=== PATIENT | female | born 1970 | race Caucasian/White ===

== ENCOUNTER 2021-05-01 13:17 | Outpatient (CLI) | payer OTHER, SELFPAY ==
--- NOTE | 2021-05-01 13:46 | XR_ITS ---
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 Joint spaces of the left hand are relatively well-preserved. No erosions or periosteal reaction. No soft tissue abnormality. XR/XR hand LT min 3V* [id number] IMPRESSION: No significant abnormality.
--- NOTE | 2021-05-01 13:46 | XR_ITS ---
WS: [email or web address] RIGHT FOOT: 3 VIEW(S) TECHNIQUE: AP, oblique and lateral. 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 No acute fracture or dislocation. Normal tarsal/metatarsal alignment. Moderate size calcaneal spur measures 6 mm. Mild enthesopathy at the distal Achilles tendon. XR/XR foot RT min 3V* [id number] IMPRESSION: Mild enthesopathy distal Achilles tendon and calcaneal spur.
--- NOTE | 2021-05-01 13:46 | XR_ITS ---
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 Moderate narrowing of the C2-C3 interspace which may be congenital. Moderate narrowing of the C5-C6 a nd C6-C7 interspaces. Mild degenerative changes in the facet joints C5-C7. Normal facet joint alignment. No significant listhesis. XR/XR cervical spine 3V* [id number] IMPRESSION: Mild changes of degenerative spondylosis C5-C7
--- NOTE | 2021-05-01 13:46 | XR_ITS ---
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 Joint spaces of the right hand are relatively well-preserved. No erosions or periosteal reaction. No soft tissue abnormality. XR/XR hand RT min 3V* [id number] IMPRESSION: No significant abnormality.
--- NOTE | 2021-05-01 13:46 | XR_ITS ---
WS: [email or web address] LEFT FOOT: 3 VIEW(S) TECHNIQUE: AP, oblique and lateral. 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 No acute fracture or dislocation. Normal tarsal/metatarsal alignment. Calcaneal spur measures 6 mm. Very slight calcification in the distal Achilles tendon. XR/XR foot LT min 3V* [id number] IMPRESSION: Minimal calcification the distal Achilles tendon and a small calcaneal spur.
--- NOTE | 2021-05-01 13:46 | XR_ITS ---
WS: [email or web address] PELVIS: AP VIEW SUBMITTED HISTORY: Z79.899 - Other detention (current) drug therapy, chronic pain for 3 years. COMPARISON: None available. Bones and soft tissues of the pelvis are intact. No fracture or dislocation. No sclerosis or fusion of the SI joints. Mild enthesopathy at the iliac crest. Well-corticated calcif ication adjacent to the RIGHT greater trochanter may be from prior trauma or calcific deposition. XR/XR pelvis 1-2V* [id number] IMPRESSION: 1. Mild enthesopathy of the iliac crest and calcification in the soft tissue a djacent to the RIGHT greater trochanter. Consider CPPD. 2. No fracture or fusion across the SI joints.
[2021-05-01 15:19] LABS: Basophils # 0.1 10^3/uL (0.0-0.1); Basophils % 0.7 %; Eosinophils # 0.2 10^3/uL (0.0-0.8); Eosinophils % 2.7 %; Hematocrit 42.2 % (37.0-47.0); Hemoglobin 13.5 g/dL (11.5-15.3); Lymphocytes # 2.4 10^3/uL (0.8-4.8); Lymphocytes % 28.8 %; Mean Corpuscular Hemoglobin 28.4 pg (28.0-34.0); Mean Corpuscular Volume 88.7 fl (81-99); Mean Platelet Volume 10.3 fL (7.4-10.4); Monocytes # 0.5 10^3/uL (0.2-0.9); Monocytes % 5.7 %; Neutrophils % 61.9 %; Nucleated Red Blood Cells % 0 %; Platelet Count 359 10^3/cmm (130-400); Red Blood Count 4.76 10^6/uL (4.1-5.3); Red Cell Distribution Width 13.9 % (12.1-15.1); White Blood Count 8.2 10^3/uL (4.0-10.0)
[2021-05-01 15:33] LABS: Erythrocyte Sedimentation Rate 27 mm/hr (0-15)
[2021-05-01 15:49] LABS: Alanine Aminotransferase 22 U/L (0-33); Albumin Level 4.3 g/dL (3.5-5.2); Alkaline Phosphatase 126 IU/L (35-105); Aspartate Amino Transferase 18 U/L (0-32); C Reactive Protein 12.8 mg/L (0.0-4.9); Globulin 2.9 g/dL (1.3-4.6); Glomerular Filtration Rate 75.9 mL/min (90-130); Total Bilirubin 0.2 mg/dL (0.15-1.2); Total Protein 7.2 g/dL (6.6-8.7)
[2021-05-01 16:00] LABS: Hepatitis B Core AB, Total Non-Reactive (Nonreactive); Hepatitis B Surface Antigen Non-Reactive (Nonreactive); Hepatitis C Virus Antibody Non-Reactive (Nonreactive)
[2021-05-01 17:42] LABS: 25 Hydroxy Vitamin D 39 ng/mL (30-100)
[2021-05-02 12:22] LABS: COMPLEMENT COMPONENT C3C 121 mg/dL (83-193); COMPLEMENT COMPONENT C4C 36 mg/dL (15-57)
[2021-05-02 13:53] LABS: Cyclic Citrullinated Peptide <16 UNITS
[2021-05-02 14:43] LABS: THYROID PEROXIDASE ANTIBODIES 1 IU/mL (<9)
[2021-05-03 09:57] LABS: CENTROMERE B ANTIBODY <1.0 NEG AI (<1.0 NEG); JO-1 ANTIBODY <1.0 NEG AI (<1.0 NEG); RNP ANTIBODY <1.0 NEG AI (<1.0 NEG); SCL-70 ANTIBODY <1.0 NEG AI (<1.0 NEG); SJOGREN'S ANTIBODY (SS-A) <1.0 NEG AI (<1.0 NEG); SM ANTIBODY <1.0 NEG AI (<1.0 NEG); SS-B <1.0 NEG AI (<1.0 NEG)
[2021-05-03 11:23] LABS: HLA-B27 NEGATIVE (NEGATIVE)
[2021-05-03 11:33] LABS: Quantiferon Mitogen >10.00 IU/mL; Quantiferon Nil 0.01 IU/mL; Quantiferon Plus TB1 0.01 IU/mL; Quantiferon Plus TB2 0.01 IU/mL; Quantiferon TB Gold NEGATIVE (NEGATIVE)
[2021-05-03 12:08] LABS: DNA AB (DS) CRITHIDIA,IFA NEGATIVE (NEGATIVE)
[2021-05-03 13:04] LABS: ANA PATTERN Nuclear, Speckled; ANA SCREEN, IFA POSITIVE (NEGATIVE); ANA TITER 1:40 titer
[2021-05-03 14:53] LABS: COMPLEMENT, TOTAL (CH50) >60 U/mL (31-60)
== END 2021-05-01 13:18 | disposition home or self-care (01) ==
PROVIDERS: Visit Provider Internal Medicine Rheumatology
DX: Z11.59 Encounter for screening for other viral diseases (principal); M19.90 Unspecified osteoarthritis, unspecified site; M45.6 Ankylosing spondylitis lumbar region; Z79.899 Other long term (current) drug therapy; R76.8 Other specified abnormal immunological findings in serum; M77.32 Calcaneal spur, left foot; M77.31 Calcaneal spur, right foot; M47.812 Spondylosis without myelopathy or radiculopathy, cervical region
CPT/HCPCS: 36415; 72040; 72170; 73130; 73630; 80076; 82306; 82565; 85025; 85651; 86140; 86160; 86162; 86200; 86235; 86255; 86376; 86480; 86704; 86803; 86812; 87340

== ENCOUNTER → 2022-10-10 13:24 | Outpatient (BNVA) | payer OTHER, SELFPAY | PROVIDERS: Visit Provider Internal Medicine Rheumatology | DX: M06.041 Rheumatoid arthritis without rheumatoid factor, right hand (principal); M06.042 Rheumatoid arthritis without rheumatoid factor, left hand; R76.8 Other specified abnormal immunological findings in serum; Z79.899 Other long term (current) drug therapy; Z71.85 Encounter for immunization safety counseling | CPT/HCPCS: 99214 ==

== ENCOUNTER → 2023-01-16 12:53 | Outpatient (BNVA) | payer OTHER, SELFPAY | PROVIDERS: Visit Provider Internal Medicine Rheumatology | DX: M06.041 Rheumatoid arthritis without rheumatoid factor, right hand (principal); M06.042 Rheumatoid arthritis without rheumatoid factor, left hand; Z79.899 Other long term (current) drug therapy; R76.8 Other specified abnormal immunological findings in serum; Z71.85 Encounter for immunization safety counseling | CPT/HCPCS: 99214 ==

== ENCOUNTER → 2023-05-15 12:43 | Outpatient (BNVA) | payer OTHER, SELFPAY | PROVIDERS: Visit Provider Internal Medicine Rheumatology | DX: Z79.899 Other long term (current) drug therapy (principal); M06.041 Rheumatoid arthritis without rheumatoid factor, right hand; M06.042 Rheumatoid arthritis without rheumatoid factor, left hand; R76.8 Other specified abnormal immunological findings in serum; Z71.85 Encounter for immunization safety counseling | CPT/HCPCS: 36415; 80076; 82565; 85025; 86140; 99214 ==

== ENCOUNTER → 2024-06-01 12:53 | Outpatient (BNVA) | payer OTHER, SELFPAY | PROVIDERS: Visit Provider Internal Medicine Rheumatology | DX: M06.041 Rheumatoid arthritis without rheumatoid factor, right hand (principal); M06.042 Rheumatoid arthritis without rheumatoid factor, left hand; R76.8 Other specified abnormal immunological findings in serum; Z71.85 Encounter for immunization safety counseling; Z79.899 Other long term (current) drug therapy | CPT/HCPCS: 99214 ==

== ENCOUNTER → 2024-09-21 12:20 | Outpatient (BNVA) | payer OTHER, SELFPAY | PROVIDERS: Visit Provider Internal Medicine Rheumatology | DX: M06.041 Rheumatoid arthritis without rheumatoid factor, right hand (principal); M06.042 Rheumatoid arthritis without rheumatoid factor, left hand; R76.8 Other specified abnormal immunological findings in serum; Z71.85 Encounter for immunization safety counseling; Z79.899 Other long term (current) drug therapy | CPT/HCPCS: 99214 ==

== ENCOUNTER → 2025-03-29 13:52 | Outpatient (BNVA) | payer OTHER, SELFPAY | PROVIDERS: Visit Provider Internal Medicine Rheumatology | DX: M06.041 Rheumatoid arthritis without rheumatoid factor, right hand (principal); M06.042 Rheumatoid arthritis without rheumatoid factor, left hand; R76.89 Other specified abnormal immunological findings in serum; Z79.899 Other long term (current) drug therapy; Z71.85 Encounter for immunization safety counseling; M54.59 Other low back pain; G89.29 Other chronic pain | CPT/HCPCS: 36415; 80076; 82306; 82565; 84439; 84443; 85025; 85651; 86140; 99214 ==